=== PATIENT | female | born 1980 | race Two or more races ===

== ENCOUNTER 2019-10-08 14:28 | Inpatient (IN) | payer MEDICAID ==
[~2019-10-08] VITALS: Ht 154.9 cm; Wt 68.5 kg
[2019-10-08] MEDS ORDERED: ZOLPIDEM TARTRATE 10 MG TABLET PO PRN (21:00)
[2019-10-08] MEDS ORDERED: HALOPERIDOL 5 MG TABLET PO PRN (21:00)
[2019-10-08] MEDS ORDERED: LORazepam 2 MG TABLET PO PRN (21:00)
[2019-10-08] MEDS ORDERED: CloNIDine HCL 0.1 MG TABLET PO PRN (21:30)
[2019-10-08] MEDS ORDERED: DOCUSATE SODIUM 100 MG CAPSULE PO PRN (21:30)
[2019-10-08] MEDS ORDERED: IBUPROFEN 400 MG TABLET PO PRN (21:30)
[2019-10-08] MEDS ORDERED: GuaiFENesin/D-METHORPHAN [SUGAR-FREE] 200-20MG/10 ML SYRUP UDCUP PO PRN (21:30)
[2019-10-08] MEDS ORDERED: ACETAMINOPHEN 325 MG TABLET PO PRN (21:30)
[2019-10-08] MEDS ORDERED: ONDANSETRON HCL 4 MG TABLET PO PRN (21:30)
[2019-10-08] MEDS ORDERED: MAG HYDROX/AL HYDROX/SIMETH ES 30 ML SUSPENSION UDCUP PO PRN (21:30)
[2019-10-08] MEDS ORDERED: MAGNESIUM HYDROXIDE SUSPENSION 30 ML UDCUP PO PRN (21:30)
[2019-10-08] MEDS ORDERED: PETROLATUM,WHITE 28 GM JELLY TP PRN (21:30)
[2019-10-08] MEDS ORDERED: LOPERAMIDE HCL 2 MG CAPSULE PO PRN (21:30)
[2019-10-08] MEDS ORDERED: ALBUTEROL SULFATE HFA 90 MCG/PUFF 8 GM INHALER IH PRN (21:30)
[2019-10-08] MEDS ORDERED: NICOTINE 14 MG/24 HOUR PATCH TD PRN (21:30)
[2019-10-09] MEDS ORDERED: LORazepam 2 MG/ML VIAL IM ONE
[2019-10-09] MEDS ORDERED: HALOPERIDOL LACTATE 5 MG/ML VIAL IM ONE
[2019-10-09] MEDS ORDERED: DiphenhydrAMINE HCL 50 MG/ML VIAL IM ONE
[2019-10-09 02:00] VITALS: BP 106/67
[2019-10-10 06:57] VITALS: BP 124/66
[2019-10-10 18:02] VITALS: BP 133/52
[2019-10-11 06:05] VITALS: BP 110/73
[2019-10-11 08:34] VITALS: BP 110/66
== END 2019-10-11 14:26 | disposition home or self-care (01) | DRG 750 ==
LOC: EMS 14:30 → EDBD 14:30 → B3A 21:10
PROVIDERS: ADMIT Psychiatry & Neurology Psychiatry; ATTEND Psychiatry & Neurology Psychiatry
DX: F25.9 Schizoaffective disorder, unspecified (principal); R45.851 Suicidal ideations; Z59.0 Homelessness; K59.00 Constipation, unspecified

== ENCOUNTER 2021-07-01 11:07 | Emergency (ER) | payer MEDICAID, OTHER | END 2021-07-01 11:37 | disposition left against medical advice (07) | LOC: EMS 11:07 | DX: Z20.822 Contact with and (suspected) exposure to COVID-19 (principal); Z53.21 Procedure and treatment not carried out due to patient leaving prior to being seen by health care provider ==

== ENCOUNTER 2021-07-01 15:35 | Emergency (ER) | payer OTHER ==
[~2021-07-01] VITALS: Ht 160 cm; Wt 81.8 kg
[2021-07-01] MEDS ORDERED: IBUPROFEN 600 MG TABLET PO ONE (16:30)
[2021-07-01 16:49] LABS: COVID AG,FIA SOURCE NASOPHARYNGEAL
[2021-07-01 17:55] VITALS: BP 148/88
== END 2021-07-01 18:27 | disposition home or self-care (01) ==
LOC: EMS 16:07
DX: S82.892A Other fracture of left lower leg, initial encounter for closed fracture (principal); W01.0XXA Fall on same level from slipping, tripping and stumbling without subsequent striking against object, initial encounter; Y93.89 Activity, other specified; Y92.89 Other specified places as the place of occurrence of the external cause; Y99.8 Other external cause status; Z20.822 Contact with and (suspected) exposure to COVID-19
CPT/HCPCS: 73610; 87426; 99284; U0003; Z7502; Z7610